=== PATIENT | female | born 1970 | race African-American/Black ===

== ENCOUNTER 2017-12-27 19:32 | Emergency (ER) | payer MEDICAID, OTHER ==
[~2017-12-27] VITALS: Ht 172.7 cm; Wt 147.7 kg
[~2017-12-27 19:32] MED LIST: CITA10TA68 PO; RISP1 PO; VITAD1000 PO
[2017-12-27 20:38] LABS: GLUCOSE,POINT OF CARE 83 MG/DL (70-110)
[2017-12-27] MEDS ORDERED: FERR-89 PO (20:42)
[2017-12-27] MEDS ORDERED: METF500T6 PO (20:42)
[2017-12-27] MEDS ORDERED: VITAD50000 PO (20:42)
[2017-12-27] MEDS ORDERED: ASPI-1182 PO (20:42)
[2017-12-27] MEDS ORDERED: ONDANSETRON HCL 4 MG TABLET PO ONE (21:15)
[2017-12-27 21:47] LABS: BASOPHILS % (AUTO) 0.9 % (0.0-2.0); EOSINOPHILS % (AUTO) 0.9 % (1.0-6.0); HEMATOCRIT 38.4 % (36-46); HEMOGLOBIN 12.9 g/dL (12.0-16.0); LYMPHOCYTES # (AUTO) 2.2 K/uL (1.0-4.8); LYMPHOCYTES % (AUTO) 24.2 % (22.0-44.0); MEAN CORPUSCULAR HEMOGLOBIN 28.3 pg (26.0-34.0); MEAN CORPUSCULAR HGB CONC 33.5 G/dL (31.0-37.0); MEAN CORPUSCULAR VOLUME 85 fL (80-100); MONOCYTES # (AUTO) 0.9 K/uL (0.1-1.0); MONOCYTES % (AUTO) 10.2 % (2.0-9.0); NEUTROPHILS # (AUTO) 5.7 K/uL (1.8-7.7); NEUTROPHILS % (AUTO) 63.8 % (40.0-70.0); PLATELET COUNT (AUTO) 315 K/uL (150-450); RED BLOOD CELL COUNT(AUTO) 4.54 MIL/uL (4.00-5.20); RED CELL DISTRIBUTION WIDTH 15.8 % (11.5-14.5)
[2017-12-27 21:56] LABS: ANION GAP 10 mmol/L (8-16); CALCIUM, TOTAL 9.5 mg/dL (8.8-10.5); CARBON DIOXIDE 26 mmol/L (22-29); CHLORIDE 104 mmol/L (98-107); CREATININE 0.88 mg/dL (0.60-1.30); GLOMERULAR FILTR. RATE CALC > 60 mL/min (>60); GLUCOSE,RANDOM 101 mg/dL (70-110); SODIUM SERUM 140 mmol/L (136-145); UREA NITROGEN, BLOOD 12 mg/dL (7-18)
[2017-12-27 22:02] LABS: ALANINE AMINOTRANSFERASE 26 U/L (12-78); ALBUMIN 3.5 g/dL (3.4-5.0); ALKALINE PHOSPHATASE 82 U/L (46-116); ASPARTATE AMINOTRANSFERASE 17 U/L (15-37); BILIRUBIN,TOTAL 0.5 mg/dL (0.1-1.0); TOTAL PROTEIN, SERUM 8.4 g/dL (6.4-8.2)
[2017-12-27 22:05] LABS: ACETAMINOPHEN < 2 mcg/mL (10-30)
[2017-12-27 22:08] LABS: IRON, SERUM 64 mcg/dL (50-175)
[2017-12-27 22:14] LABS: SALICYLATE 0.9 mg/dL (2.8-20.0)
[2017-12-28 02:55] LABS: ANION GAP 10 mmol/L (8-16); CALCIUM, TOTAL 9.2 mg/dL (8.8-10.5); CARBON DIOXIDE 25 mmol/L (22-29); CHLORIDE 103 mmol/L (98-107); CREATININE 0.85 mg/dL (0.60-1.30); GLOMERULAR FILTR. RATE CALC > 60 mL/min (>60); GLUCOSE,RANDOM 105 mg/dL (70-110); POTASSIUM 4.3 mmol/L (3.5-5.1); SODIUM SERUM 138 mmol/L (136-145); UREA NITROGEN, BLOOD 13 mg/dL (7-18)
[2017-12-28 03:05] LABS: IRON, SERUM 49 mcg/dL (50-175)
[2017-12-28 03:29] LABS: SALICYLATE < 2.8 mg/dL (2.8-20.0)
[2017-12-28 03:56] VITALS: BP 119/70
== END 2017-12-28 04:30 | disposition home or self-care (01) ==
LOC: EMS 19:33
DX: T38.3X1A Poisoning by insulin and oral hypoglycemic [antidiabetic] drugs, accidental (unintentional), initial encounter (principal); T45.4X1A Poisoning by iron and its compounds, accidental (unintentional), initial encounter; T39.011A Poisoning by aspirin, accidental (unintentional), initial encounter; J45.909 Unspecified asthma, uncomplicated; E11.9 Type 2 diabetes mellitus without complications; F32.9 Major depressive disorder, single episode, unspecified; Z79.82 Long term (current) use of aspirin; Y92.89 Other specified places as the place of occurrence of the external cause
CPT/HCPCS: 36415; 80048; 80053; 82962; 83540; 83605; 84703; 85025; 93005; 99285; G0480 ×2; G0481; Q0162

== ENCOUNTER 2018-02-19 18:31 | Emergency (ER) | payer OTHER ==
[~2018-02-19] VITALS: Ht 165.1 cm; Wt 137.7 kg
[~2018-02-19 18:31] MED LIST changes: +ASPI-1182 PO; -CITA10TA68 PO; +FERR-89 PO; +METF-960 PO; -RISP1 PO; -VITAD1000 PO; +VITAD50000 PO
[2018-02-19] MEDS ORDERED: RISP1 PO (18:39)
[2018-02-19] MEDS ORDERED: CITA10TA68 PO (18:39)
[2018-02-19 18:59] LABS: GLUCOSE,POINT OF CARE 99 MG/DL (70-110)
[2018-02-19 20:23] VITALS: BP 144/96
== END 2018-02-19 20:38 | disposition home or self-care (01) ==
LOC: EMS 18:32
DX: F20.0 Paranoid schizophrenia (principal); R03.0 Elevated blood-pressure reading, without diagnosis of hypertension; J45.909 Unspecified asthma, uncomplicated; E11.9 Type 2 diabetes mellitus without complications; F32.9 Major depressive disorder, single episode, unspecified; Z76.0 Encounter for issue of repeat prescription; Z79.84 Long term (current) use of oral hypoglycemic drugs; Z79.82 Long term (current) use of aspirin
CPT/HCPCS: 99283

== ENCOUNTER 2019-05-29 22:50 | Emergency (ER) | payer OTHER ==
[~2019-05-29] VITALS: Ht 165.1 cm; Wt 160.4 kg
[~2019-05-29 22:50] MED LIST changes: +CHOL500043 PO; +CITA10TA68 PO; +RISP1 PO; -VITAD50000 PO
[2019-05-29] MEDS ORDERED: LORA10TA7 PO (23:47)
[2019-05-29] MEDS ORDERED: SIMV5TAB58 PO (23:47)
[2019-05-29 23:54] LABS: GLUCOSE,POINT OF CARE 214 MG/DL (70-110)
[2019-05-30] MEDS ORDERED: IPRATROPIUM BROMIDE 0.5 MG/2.5 ML NEB SOLUTION NEB ONE (01:00)
[2019-05-30] MEDS ORDERED: PredniSONE 20 MG TABLET PO ONE (01:00)
[2019-05-30] MEDS ORDERED: ALBUTEROL SULFATE 5 MG/ML 20 ML NEB SOLN [BULK] NEB ONE (01:00)
[2019-05-30] MEDS ORDERED: ALBUTEROL SULFATE HFA 90 MCG/PUFF 8 GM INHALER IH ONE (01:00)
[2019-05-30] MEDS ORDERED: 0.9% SODIUM CHLORIDE 15 ML NEB SOLUTION NEB ONE (01:06)
[2019-05-30 02:26] VITALS: BP 155/88
== END 2019-05-30 02:27 | disposition home or self-care (01) ==
LOC: EMS 22:54
DX: J45.901 Unspecified asthma with (acute) exacerbation (principal); E11.9 Type 2 diabetes mellitus without complications; F32.9 Major depressive disorder, single episode, unspecified; Z79.82 Long term (current) use of aspirin; Z79.84 Long term (current) use of oral hypoglycemic drugs
CPT/HCPCS: 82962; 94640; 94644; 99285; J7512; J3535

== ENCOUNTER 2021-09-15 17:08 | Emergency (ER) | payer OTHER ==
[~2021-09-15] VITALS: Ht 165.1 cm; Wt 136.4 kg
[~2021-09-15 17:08] MED LIST changes: -ASPI-1182 PO; +ASPI-1444 PO; -CITA10TA68 PO; -FERR-89 PO; +LORA10TA7 PO; +METF-1211 PO; -METF-960 PO; -RISP1 PO; +RISP1TAB48 PO; +SIMV5TAB58 PO
[2021-09-15 18:44] LABS: BASOPHILS % (AUTO) 0.2 % (0.0-2.0); EOSINOPHILS % (AUTO) 0.6 % (1.0-6.0); HEMATOCRIT 36.1 % (36-46); HEMOGLOBIN 11.7 g/dL (12.0-16.0); LYMPHOCYTES # (AUTO) 2.5 K/uL (1.0-4.8); LYMPHOCYTES % (AUTO) 23.4 % (22.0-44.0); MEAN CORPUSCULAR HEMOGLOBIN 26.3 pg (26.0-34.0); MEAN CORPUSCULAR HGB CONC 32.5 G/dL (31.0-37.0); MEAN CORPUSCULAR VOLUME 81 fL (80-100); MONOCYTES # (AUTO) 1.2 K/uL (0.1-1.0); MONOCYTES % (AUTO) 11.3 % (2.0-9.0); NEUTROPHILS # (AUTO) 6.8 K/uL (1.8-7.7); NEUTROPHILS % (AUTO) 64.5 % (40.0-70.0); PLATELET COUNT (AUTO) 345 K/uL (150-450); RED BLOOD CELL COUNT(AUTO) 4.46 MIL/uL (4.00-5.20); RED CELL DISTRIBUTION WIDTH 16.2 % (11.5-14.5)
[2021-09-15 18:45] VITALS: BP 132/80
[2021-09-15 18:53] LABS: ANION GAP 7 mmol/L (8-16); CALCIUM, TOTAL 8.8 mg/dL (8.8-10.5); CARBON DIOXIDE 30 mmol/L (22-29); CHLORIDE 104 mmol/L (98-107); CREATININE 1.01 mg/dL (0.60-1.30); GLOMERULAR FILTR. RATE CALC > 60 mL/min (>60); GLUCOSE,RANDOM 149 mg/dL (70-110); SODIUM SERUM 141 mmol/L (136-145); UREA NITROGEN, BLOOD 11 mg/dL (7-18)
[2021-09-15 18:58] LABS: ALANINE AMINOTRANSFERASE 20 U/L (12-78); ALBUMIN 3.2 g/dL (3.4-5.0); ALKALINE PHOSPHATASE 95 U/L (46-116); ASPARTATE AMINOTRANSFERASE 15 U/L (15-37); BILIRUBIN,TOTAL 0.4 mg/dL (0.1-1.0); TOTAL PROTEIN, SERUM 8.1 g/dL (6.4-8.2)
[2021-09-15 19:00] LABS: COVID AG,FIA SOURCE NASOPHARYNGEAL
[2021-09-16 12:06] LABS: GLUCOMETER DEV NAME(LOC) CSU.; GLUCOSE,POINT OF CARE 132 MG/DL (70-110)
== END 2021-09-15 19:40 | disposition home or self-care (01) ==
LOC: EMS 17:08
DX: F20.0 Paranoid schizophrenia (principal); J45.909 Unspecified asthma, uncomplicated; E11.9 Type 2 diabetes mellitus without complications; Z20.822 Contact with and (suspected) exposure to COVID-19; Z88.0 Allergy status to penicillin; Z79.84 Long term (current) use of oral hypoglycemic drugs
CPT/HCPCS: 36415; 80053; 82962; 85025; 87426; 99284; G0480

== ENCOUNTER 2022-08-23 11:27 | Emergency (ER) | payer OTHER ==
[~2022-08-23] VITALS: Ht 167.6 cm; Wt 150.0 kg
[2022-08-23] MEDS ORDERED: PROPARACAINE HCL 0.5% 15 ML OPHTHALMIC SOLUTION OS ONE (12:00)
[2022-08-23] MEDS ORDERED: FLUORESCEIN SODIUM 1 MG STRIP OS ONE (12:00)
[2022-08-23] MEDS ORDERED: IOHEXOL 350 MG/ML 100 ML VIAL ONE ×2 (12:38→17:03)
[2022-08-23] MEDS ORDERED: SODIUM CHLORIDE 0.9% 100 ML ONE ×2 (12:38→17:03)
[2022-08-23] MEDS ORDERED: ERYT3.5O8 OU (13:25)
[2022-08-23 13:43] LABS: EOSINOPHILS % (AUTO) 0.7 % (1.0-6.0); HEMATOCRIT 35.8 % (36-46); HEMOGLOBIN 11.7 g/dL (12.0-16.0); LYMPHOCYTES # (AUTO) 2.6 K/uL (1.0-4.8); LYMPHOCYTES % (AUTO) 25.6 % (22.0-44.0); MEAN CORPUSCULAR HEMOGLOBIN 27.5 pg (26.0-34.0); MEAN CORPUSCULAR HGB CONC 32.8 G/dL (31.0-37.0); MEAN CORPUSCULAR VOLUME 84 fL (80-100); MONOCYTES # (AUTO) 0.9 K/uL (0.1-1.0); MONOCYTES % (AUTO) 8.7 % (2.0-9.0); NEUTROPHILS # (AUTO) 6.6 K/uL (1.8-7.7); PLATELET COUNT (AUTO) 354 K/uL (150-450); RED BLOOD CELL COUNT(AUTO) 4.27 MIL/uL (4.00-5.20); RED CELL DISTRIBUTION WIDTH 15.2 % (11.5-14.5)
[2022-08-23 13:58] LABS: ANION GAP 5 mmol/L (8-16); CALCIUM, TOTAL 9.4 mg/dL (8.8-10.5); CARBON DIOXIDE 30 mmol/L (22-29); CHLORIDE 100 mmol/L (98-107); CREATININE 0.83 mg/dL (0.60-1.30); GLOMERULAR FILTR. RATE CALC > 60 mL/min (>60); GLUCOSE,RANDOM 134 mg/dL (70-110); SODIUM SERUM 135 mmol/L (136-145); UREA NITROGEN, BLOOD 9 mg/dL (7-18)
[2022-08-23 18:54] VITALS: BP 136/75
[2022-08-23 19:46] LABS: GLUCOSE,POINT OF CARE 158 MG/DL (70-110)
== END 2022-08-23 18:56 | disposition home or self-care (01) ==
LOC: EMS 11:45
DX: H57.12 Ocular pain, left eye (principal); H50.9 Unspecified strabismus; F20.0 Paranoid schizophrenia; J45.909 Unspecified asthma, uncomplicated; E11.9 Type 2 diabetes mellitus without complications; Z88.0 Allergy status to penicillin
CPT/HCPCS: 99285; 70496; 80048; 82962; 85025; 36415; Q9967; J7050